=== PATIENT | female | born 1990 | race Hispanic/Latino ===

== ENCOUNTER 2024-12-09 15:22 | Emergency (ER) | payer SELFPAY ==
[2024-12-09] MEDS ORDERED: DIPHENHYDRAMINE 25 MG TAB/CAP ONE (16:01)
[2024-12-09] MEDS ORDERED: FAMOTIDINE 20 MG TAB ONE (16:01)
--- NOTE | 2024-12-09 16:14 | ER ---
Nurse's Notes [facility] Name: Subha Douglas Age: 34 yrs Sex: Female : 1990 Arrival Date: 12/09/2024 Time: 15:22 Bed Treatment Private MD: Diagnosis: Rash and other nonspecific skin eruption Presentation: 12/09 15:41 Chief complaint: Patient states: c/o generalized rash all over body w/ itchiness, and kb4 redness. Coronavirus screen: At this time, unable to obtain information related to travel outside the [place] Ebola Screen: No symptoms or risks identified at this time. Initial Sepsis Screen: Does the patient meet any 2 criteria? No. Patient's initial sepsis screen is negative. Does the patient have a suspected source of infection? No. Patient's initial sepsis screen is negative. Risk Assessment: Do you want to hurt yourself or someone else? Patient reports no desire to harm self or others. Onset of symptoms was November 25, 2024. 15:41 Method Of Arrival: Ambulatory kb4 15:41 Acuity: JAVAD 3 kb4 15:48 Note instrumental music teacher used for triage (instrumental music teacher #[id number]). kb4 Triage Assessment: 15:45 General: Appears in no apparent distress. comfortable, Behavior is calm, cooperative. kb4 Pain: Complains of pain in whole body, generalized rash. 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 - Infectious Disease History:: Denies. - Social history:: Smoking status: Patient denies any tobacco usage or history of. Screenin:20 [facility] ED Fall Risk Assessment (Adult) History of falling in the last 3 months, ll1 including since admission No falls in past 3 months (0 pts) Confusion or Disorientation No (0 pts) Intoxicated or Sedated No (0 pts) Impaired Gait No (0 pts) Mobility Assist Device Used No (0 pt) Altered Elimination No (0 pt) Score/Fall Risk Level 0 - 2 = Low Risk Maintained a safe environment, Hourly rounding (assess needs \T\ fall precautionary measures) done. Abuse screen: Denies threats or abuse. Nutritional screening: No deficits noted. Tuberculosis screening: No symptoms or risk factors identified. Assessment: 16:07 General: Appears uncomfortable, Behavior is calm, cooperative, appropriate for age. ll1 Pain: Complains of pain in right arm and left arm Quality of pain is described as burning. Derm: Reports rash to body with itching. + scaling of the skin on arms, with urning pain. 16:20 Reassessment: No changes from previously documented assessment. Patient and/or family ll1 updated on plan of care and expected duration. Pain level reassessed. Patient is alert, oriented x 3, equal unlabored respirations, skin warm/dry/pink. Vital Signs: 15:41 BP 124 / 88; Pulse 89; Resp 18; Pulse Ox 96% ; Weight 50.26 kg; Height 4 ft. 11 in. ; kb4 16:23 BP 113 / 82; Pulse 86; Resp 16; Pulse Ox 96% ; ll1 15:41 Body Mass Index 22.38 (50.26 kg, 149.86 cm) kb4 ED Course: 15:23 Patient arrived in ED. im 15:26 Hank Allan MD is Attending Physician. brittney 15:26 Sage Villarreal FNP-C is PHCP. dr5 15:27 Hank Allan MD is Attending Physician. dr5 15:45 Triage completed. kb4 15:57 David Pollock, RN is Primary Nurse. ll1 15:57 Arm band placed on Patient placed in an exam room, on a stretcher. ll1 16:00 Provided Education on: ER procedures and process. ll1 16:21 No provider procedures requiring assistance completed. Patient did not have IV access ll1 during this emergency room visit. 16:24 Patient has correct armband on for positive identification. Bed in low position. ll1 Cardiac monitoring not applicable on this patient. Administered Medications: 16:07 Drug: Dexamethasone IM 10 mg IM once Route: IM; Site: right gluteus; ll1 16:21 Follow up: Response: No adverse reaction ll1 16:07 Drug: diphenhydrAMINE PO 25 mg PO once Route: PO; ll1 16:21 Follow up: Response: No adverse reaction ll1 16:07 Drug: Famotidine PO 20 mg PO once Route: PO; ll1 16:21 Follow up: Response: No adverse reaction ll1 Medication: 16:24 VIS not applicable for this client. ll1 Outcome: 16:13 Discharge ordered by . dr5 16:23 Discharged to home ambulatory, ll1 16:23 Condition: stable 16:23 Discharge instructions given to patient, Instructed on discharge instructions, follow up and referral plans. medication usage, Demonstrated understanding of instructions, follow-up care, medications, Prescriptions given X 3, 16:24 Patient left the ED. ll1 Signatures: Hank Allan MD MD cha Lewis, Lynsay, RN RN ll1 Celi Milner Dustin, BISQUE WARE DIPPER-C BISQUE WARE DIPPER-Cdr5 eBrta Leyva, RN RN kb4
--- NOTE | 2024-12-09 16:14 | EDPHYS ---
Physician Documentation [facility] Name: Subha Douglas Age: 34 yrs Sex: Female : 1990 Arrival Date: 12/09/2024 Time: 15:22 Bed Treatment Private MD: ED Physician Hank Allan HPI: 12/09 20:47 This 34 yrs old Female presents to ER via Ambulatory with complaints of Rash. dr5 20:47 Onset: The symptoms/episode began/occurred 2 week(s) ago. Patient is a 34-year-old dr5 female with no past medical history coming with generalized rash this been going on for 2 weeks. Patient reports that she was seen at [facility] for same rash a couple days ago and was prescribed a cream. Patient reports rash is itchy and bothersome at night.. 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 - Infectious Disease History:: Denies. - Social history:: Smoking status: Patient denies any tobacco usage or history of. ROS: 20:47 Constitutional: as per hpi dr5 Exam: 20:47 Constitutional: This is a well developed, well nourished patient who is awake, alert, dr5 and in no acute distress. Head/Face: Normocephalic, atraumatic. Eyes: Pupils equal round and reactive to light, extra-ocular motions intact. Lids and lashes normal. Conjunctiva and sclera are non-icteric and not injected. Cornea within normal limits. Periorbital areas with no swelling, redness, or edema. Neck: Trachea midline, no thyromegaly or masses palpated, and no cervical lymphadenopathy. Supple, full range of motion without nuchal rigidity, or vertebral point tenderness. No Meningismus. Chest/axilla: Normal chest wall appearance and motion. Nontender with no deformity. No lesions are appreciated. Cardiovascular: Regular rate and rhythm with a normal S1 and S2. Normal PMI, no JVD. No pulse deficits. Respiratory: Lungs have equal breath sounds bilaterally, clear to auscultation. No rales, rhonchi or wheezes noted. No increased work of breathing, no retractions or nasal flaring. Back: No spinal tenderness. No costovertebral tenderness. Full range of motion. MS/ Extremity: Pulses equal, no cyanosis. Neurovascular intact. Full, normal range of motion. Neuro: Awake and alert, GCS 15, oriented to person, place, time, and situation. Cranial nerves II-XII grossly intact. Motor strength 5/5 in all extremities. Sensory grossly intact. Cerebellar exam normal. Normal gait. 20:47 Skin: rash a moderate rash is noted, rash can be described as excoriated, macular, urticarial, contact dermatitis, Vital Signs: 15:41 BP 124 / 88; Pulse 89; Resp 18; Pulse Ox 96% ; Weight 50.26 kg; Height 4 ft. 11 in. ; kb4 16:23 BP 113 / 82; Pulse 86; Resp 16; Pulse Ox 96% ; ll1 15:41 Body Mass Index 22.38 (50.26 kg, 149.86 cm) kb4 MDM: 15:26 Medical Screening Exam initiated brittney 20:47 Differential diagnosis: impetigo, varicella, allergic reaction, carcinoma. Data dr5 reviewed: vital signs, nurses notes. Consideration of Admission/Observation Escalation of care including admission/observation considered. Escalation considered if patient found to have fever. I considered the following discharge prescriptions or medication management in the emergency department I discussed and recommended Over The Counter medications, Medications were administered in the Emergency Department. See MAR. Historians other than the Patient: Daughter/Son: Daughter at bedside. Care significantly affected by the following Social Determinants of Health: Poor access to healthcare and/or lack of insurance, Poor access to transportation, Problems related to employment. Counseling: I had a detailed discussion with the patient and/or guardian regarding the historical points, exam findings, and any diagnostic results supporting the discharge/admit diagnosis, the presence of at least one elevated blood pressure reading (>120/80) during this emergency department visit, the need for outpatient follow up, for definitive care, a fuel handler, a family practitioner, to return to the emergency department if symptoms worsen or persist or if there are any questions or concerns that arise at home. Medication response: Diphenhydramine, famotidine, dexamethasone. Response to treatment: the patient's symptoms have markedly improved after treatment. Special discussion: I discussed with the patient/guardian in detail that at this point there is no indication for admission to the hospital. It is understood, however, that if the symptoms persist or worsen the patient needs to return immediately for re-evaluation. Based on the history and exam findings, there is no indication for further emergent testing or inpatient evaluation. I discussed with the patient/guardian the need to see the fuel handler for further evaluation of the symptoms. ED course: Medication given in ER which markedly improved her symptoms. Recommend patient follow-up with dermatology this next week. All question answered. Strict ER precautions given.. Administered Medications: 16:07 Drug: Dexamethasone IM 10 mg IM once Route: IM; Site: right gluteus; ll1 16:21 Follow up: Response: No adverse reaction ll1 16:07 Drug: diphenhydrAMINE PO 25 mg PO once Route: PO; ll1 16:21 Follow up: Response: No adverse reaction ll1 16:07 Drug: Famotidine PO 20 mg PO once Route: PO; ll1 16:21 Follow up: Response: No adverse reaction ll1 Disposition Summary: 12/09/24 16:13 Discharge Ordered Notes: Location: Home dr5 Condition: Stable dr5 Diagnosis - Rash and other nonspecific skin eruption dr5 Followup: dr5 - With: Emergency Department - When: As needed - Reason: Worsening of condition Followup: dr5 - With: Private Physician - When: Executive Officer - Reason: Recheck today's complaints, Continuance of care, Re-evaluation by your physician Discharge Instructions: - Discharge Summary Sheet dr5 - Rash, Adult dr5 Forms: - Medication Reconciliation Form dr5 - Patient Portal Instructions dr5 - Leadership Thank You Letter dr5 Prescriptions: - Medrol (Matthew) 4 mg Oral Tablets, Dose Pack - take 1 tablet ORAL route as directed - follow package instructions; 1 packet; dr5 Refills: 0, Product Selection Permitted - Triamcinolone Acetonide 0.1 % Topical ointment - apply 1 application TOPICAL route every 12 hours As needed; 1 application; dr5 Refills: 0, Product Selection Permitted - Pepcid 20 mg Oral Tablet - take 1 tablet ORAL route once daily; 20 tablet; Refills: 0, Product Selection dr5 Permitted Addendum: 12/11/2024 07:29 Co-signature as Attending Physician, Hank Allan MD I agree with the assessment and c winkler plan of care. Signatures: Hank Allan MD MD cha Lewis, Lynsay RN RN ll1 Sage Villarreal, REVIEW SPECIALIST-C REVIEW SPECIALIST-Cdr5 Leyva, Berta, RN RN kb4
[2024-12-09 17:41] VITALS: O2SAT 96
[2024-12-09 17:42] VITALS: BP 113/82
== END 2024-12-09 16:24 | disposition home or self-care (01) ==
LOC: ER 15:22
DX: R21 Rash and other nonspecific skin eruption (principal)
CPT/HCPCS: 96372; 99284; J1100